=== PATIENT | male | born 1990 | race Two or more races ===

== ENCOUNTER 2018-08-15 04:38 | Emergency (ER) | payer MEDICAID, OTHER ==
[~2018-08-15] VITALS: Ht 175.3 cm; Wt 88.5 kg
--- NOTE | 2018-08-15 05:15 | NUR ---
AT THE BED SIDE
[2018-08-15] MEDS ORDERED: LORAZEPAM 1 MG TABLET PO ONE ×2 (05:30→06:00)
[2018-08-15] MEDS ORDERED: LORAZEPAM 1 MG TABLET ONE ×2 (05:31→05:57)
[2018-08-15] MEDS ORDERED: OLANZAPINE 5 MG TABLET ONE (05:58)
[2018-08-15] MEDS ORDERED: OLANZAPINE 5 MG/TAB.RAPDIS PO ONE (06:00)
[2018-08-15 06:03] VITALS: BP 134/77
--- NOTE | 2018-08-15 14:42 | NUR ---
CALLED [facility]AIR PAD MAKER, SHE STATED THAT SHE WOULD SPEAK TO THE PATIENT
--- NOTE | 2018-08-15 14:50 | NUR ---
[facility] AT BEDSIDE
--- NOTE | 2018-08-15 15:05 | NUR ---
SW received a call from Nayan in ER requesting for SW to speak with the pt. due to homelessness. Pt. is a 24 year old male who was bought in to [facility] ED by paramedics from [facility], because he was trying to " steal stuff" per ER Doctor's notes. SW met with pt. bedside. Pt. is alert and oriented x 4. Pt. was lying down watching TV. Pt. has tattoos over his eyebrows that say, "White Devil." Pt. also has a dollar sign tattoo on his left upper cheek. Pt. was cooperative with SW during the assessment. Pt. states he was in [facility] for 11 months and was released August 11, 2018. Pt. was in intermediate for making criminal threats. Pt. has been living on the streets since he has been out of intermediate. Pt. states he is suppose to get in touch with Whole person team and is trying to locate the document that has all the information. SW offered pt. residential placement, however pt. declined. Pt. is willing to accept homeless resources. Pt. is originally from [place]. 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 Pt. has no source of income. 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 Pt. has attended a drug treatment program in [place] in 2010. Pt. is currently not interested in attending a drug treatment program. Pt. denies suicidal and homicidal ideations at this time. The following resources were provided to the patient: Homeless shelters that included [facility], [address] [facility] [place], [address] , A , [facility] [place] that includes food mazariegos, transitional housing, shelters etc; [facility] [address] [place] [address], , [facility] (Behavioral Health)[address] [facility] [place] [address] Main Number: , [facility], [address] [place] [address] ; [facility] [address] [facility], Alcohol and Drug Treatment Programs- [facility] Substance Abuse Self-helpline ([facility])Contact number . Call the hotline and the butane compressor operator will screen and link individual to an appropriate program. Must have Medi-jenifer or be Med-jenifer eligible. [facility] [address] [place] [address] TINO also provided pt. with [facility] for housing such as [employer], [address] [facility] Program and [address] [facility], [address] Transitional housing, Case Management, Housing Services, Workforce Development, Clinical Services which include [employer] [address] [place], [id number] www.[employer].org Provide housing and supportive services; Formerly incarcerated women in [facility] Housing Enhanced Emergency Housing Program & [facility]* [facility] Emergency housing along with case management, referrals to transitional & permanent supportive housing & food services *[facility] House is for recovering addicts & requires 90 days clean [facility] [address] [facility], [address] Pt. was provided with a warm meal and TAP Card. Homeless patient Waiver form was signed by the pt. and placed in pt's chart. TINO updated Dr. Daley and YUKI Copeland in regards to pt's discharge plan.
== END 2018-08-15 15:30 | disposition home or self-care (01) ==
LOC: ER 04:41
DX: F15.20 Other stimulant dependence, uncomplicated (principal); R46.89 Other symptoms and signs involving appearance and behavior; R00.0 Tachycardia, unspecified; Z88.5 Allergy status to narcotic agent